=== PATIENT | male | born 1955 | race Caucasian/White ===

== ENCOUNTER 2017-03-20 11:46 | Inpatient (IN) | payer OTHER ==
[~2017-03-20] VITALS: Ht 182.9 cm; Wt 122.5 kg
[2017-03-20 11:53] VITALS: BP_SYST 212
[2017-03-20 12:40] LABS: BASOPHILS # (AUTO) 0.3 K/uL (0.0-0.2); BASOPHILS % (AUTO) 2.7 % (0.0-2.0); EOSINOPHILS # (AUTO) 0.1 K/uL (0.0-0.4); EOSINOPHILS % (AUTO) 0.9 % (0.0-4.0); HEMATOCRIT 49.2 % (36-54); HEMOGLOBIN 16.3 g/dL (14.0-18.0); LYMPHOCYTES % (AUTO) 16.8 % (20.5-51.5); MEAN CORPUSCULAR HEMOGLOBIN 29 pg (27-31); MEAN CORPUSCULAR HGB CONC 33 % (32-36); MEAN CORPUSCULAR VOLUME 88 fL (79.0-98.0); MONOCYTES % (AUTO) 8.4 % (1.7-9.3); NEUTROPHILS # (AUTO) 8.7 K/uL (1.8-7.7); NEUTROPHILS % (AUTO) 71.2 % (40.0-70.0); PLATELET COUNT (AUTO) 247 K/uL (130-430); RED BLOOD CELL COUNT(AUTO) 5.61 MIL/uL (4.2-6.2); RED CELL DISTRIBUTION WIDTH 12.4 % (9.0-15.0); WHITE BLOOD COUNT (AUTO) 12.1 K/uL (4.8-10.8)
[2017-03-20 12:44] LABS: CALCIUM 9.2 mg/dL (8.4-11.0); CREATININE 1.26 mg/dL (0.55-1.30)
[2017-03-20 12:47] LABS: INR 1.1 (0.80-1.20); PROTHROMBIN TIME 11.6 SECS (9.5-12.5)
[2017-03-20 12:50] LABS: POTASSIUM 2.9 mmol/L (3.5-5.1)
[2017-03-20 12:55] LABS: ALBUMIN 3.5 g/dL (3.4-4.8); TOTAL BILIRUBIN 0.6 mg/dL (0.0-1.0)
[2017-03-20] MEDS ORDERED: PROMETHAZINE 6.25 MG/ CODEINE 10 MG/ 5 ML PO ONE ×2 (13:00→16:45)
[2017-03-20] MEDS ORDERED: AZITHROMYCIN 500 MG in NS 250 ML IV ONE (13:00)
[2017-03-20] MEDS ORDERED: POTASSIUM CHLORIDE 20 MEQ TAB.PRT.SR PO ONE (13:00)
[2017-03-20] MEDS ORDERED: methylPREDNISolone SOD SUCC/PF 62.5 MG/ML VIAL IVP ONE (13:00)
[2017-03-20] MEDS ORDERED: IPRATROPIUM/ALBUTEROL SULFATE 3 ML AMPUL.NEB INH ONE ×2 (13:00→16:45)
[2017-03-20] MEDS ORDERED: NACL 0.9% 1,000 ML IV ONE (13:00)
[2017-03-20] MEDS ORDERED: AZITHROMYCIN 500 MG/VIAL (ZITHROMAX) IV ONE (14:10)
[2017-03-20] MEDS ORDERED: IOHEXOL 350 mgI/mL, 150 ML INFUS..BTL IV ONE (14:59)
[2017-03-20] MEDS ORDERED: ONDANSETRON HCL 4 MG/2 ML VIAL IVP ONE (16:45)
[2017-03-20] MEDS ORDERED: MORPHINE 2 MG/ML INJ. SYRINGE IVP ONE (16:45)
[2017-03-20 18:24] VITALS: BP_SYST 204
[2017-03-20] MEDS: cloNIDine HCL 0.1 MG TABLET PO PRN (18:34)
[2017-03-20 19:30] VITALS: BP_SYST 161
[2017-03-21 00:19] VITALS: BP_SYST 159
[2017-03-21 04:00] VITALS: BP_SYST 154
[2017-03-21 06:43] LABS: BASOPHILS % (AUTO) 0.2 % (0.0-2.0); EOSINOPHILS % (AUTO) 0.1 % (0.0-4.0); HEMOGLOBIN 14.8 g/dL (14.0-18.0); LYMPHOCYTES # (AUTO) 1.5 K/uL (1.0-5.5); LYMPHOCYTES % (AUTO) 13.3 % (20.5-51.5); MEAN CORPUSCULAR HEMOGLOBIN 29 pg (27-31); MEAN CORPUSCULAR HGB CONC 33 % (32-36); MEAN CORPUSCULAR VOLUME 89 fL (79.0-98.0); MONOCYTES # (AUTO) 0.6 K/uL (0.0-1.0); MONOCYTES % (AUTO) 5.1 % (1.7-9.3); NEUTROPHILS # (AUTO) 9.4 K/uL (1.8-7.7); NEUTROPHILS % (AUTO) 81.3 % (40.0-70.0); PLATELET COUNT (AUTO) 269 K/uL (130-430); RED BLOOD CELL COUNT(AUTO) 5.07 MIL/uL (4.2-6.2); RED CELL DISTRIBUTION WIDTH 12.6 % (9.0-15.0); WHITE BLOOD COUNT (AUTO) 11.5 K/uL (4.8-10.8)
[2017-03-21 06:50] LABS: CREATININE 1.15 mg/dL (0.55-1.30); POTASSIUM 3.8 mmol/L (3.5-5.1); TOTAL BILIRUBIN 0.3 mg/dL (0.0-1.0); TOTAL PROTEIN, SERUM 7.3 g/dL (6.4-8.3)
[2017-03-21 08:11] VITALS: BP_SYST 167
[2017-03-21] MEDS: ALBUTEROL SULFATE 0.083% 2.5 MG/3 ML VIAL.NEB INH PRN ×2 (08:12→11:35)
[2017-03-21] MEDS ORDERED: ENOXAPARIN SODIUM 40 MG/0.4 ML SYRINGE SUBCUT SCH (09:00)
[2017-03-21] MEDS ORDERED: ASPIRIN 81 MG TAB.CHEW PO SCH (09:00)
[2017-03-21] MEDS ORDERED: AZITHROMYCIN 500 MG in NS 250 ML IV SCH (09:30)
[2017-03-21] MEDS ORDERED: cefTRIAXone 1 GM IVPB PREMIX 50 ML IV SCH (09:30)
[2017-03-21] MEDS: cloNIDine HCL 0.1 MG TABLET PO PRN (10:41)
[2017-03-21 11:31] VITALS: BP_SYST 169
[2017-03-21] MEDS ORDERED: guaiFENesin 200 MG/10 ML UDC PO SCH (13:00)
[2017-03-21] MEDS ORDERED: LEVO500T20 PO (14:30)
[2017-03-21] MEDS ORDERED: METO25TA6 PO (14:31)
[2017-03-21] MEDS ORDERED: ALBU8.5H8 INH (14:33)
[2017-03-21] MEDS ORDERED: GUAI5SYR PO (14:34)
[2017-03-21 14:45] VITALS: BP_SYST 150
[2017-03-21 14:49] VITALS: BP_SYST 150
[2017-03-21] MEDS ORDERED: METOPROLOL TARTRATE 25 MG TABLET PO SCH (21:00)
== END 2017-03-21 15:40 | disposition home or self-care (01) | DRG 872 ==
LOC: SED 11:46 → STU 17:04
DX: A41.9 Sepsis, unspecified organism (principal); I10 Essential (primary) hypertension; J20.9 Acute bronchitis, unspecified; R79.89 Other specified abnormal findings of blood chemistry; Z87.891 Personal history of nicotine dependence
CPT/HCPCS: 36415; 71010; 71275; 80053; 83605; 83880; 84484; 85025; 85379; 85610-TC; 85730-TC; 87040-TC; 93005; 93306; 94640; 96365; 96366; 96367; 96375; 99291; J0456; J0696; J1650; J2270; J2405; J2930; J7030; J7040; J7050; Q9967

== ENCOUNTER 2017-03-22 04:44 | Inpatient (IN) | payer OTHER ==
[2017-03-22] VITALS (9 sets, daily range): BP systolic 136–190
[~2017-03-22] VITALS: Ht 182.9 cm; Wt 130.6 kg
[~2017-03-22 04:44] MED LIST: ALBU8.5H8 INH; GUAI5SYR PO; LEVO500T20 PO; METO25TA6 PO
[2017-03-22] MEDS ORDERED: methylPREDNISolone SOD SUCC/PF 62.5 MG/ML VIAL IVP ONE ×3 (04:54→10:30)
[2017-03-22] MEDS ORDERED: IPRATROPIUM/ALBUTEROL SULFATE 3 ML AMPUL.NEB INH ONE (04:54)
[2017-03-22] MEDS ORDERED: methylPREDNISolone SOD SUCC/PF 62.5 MG/ML VIAL ONE (05:03)
[2017-03-22 05:25] LABS: BLOOD GAS PH 7.401 (7.350-7.450)
[2017-03-22 05:26] LABS: ABG TOTAL HEMOGLOBIN 16.1 G/dL (12.0-18.0); BLOOD GAS COHb% 0.2 % (0.5-1.5); BLOOD GAS HHB 2.4 % (0.0-6.0); BLOOD O2Hb% 97.1 % (94.0-97.0)
[2017-03-22 05:27] LABS: BLOOD GAS BASE EXCESS -0.9 mmol/L (-3.0-3.0)
[2017-03-22] MEDS ORDERED: VANCOMYCIN HCL 1,000 MG in NS 250 ML IV ONE (05:30)
[2017-03-22] MEDS ORDERED: MEROPENEM 1 GM in NS 100 ML IV ONE (05:30)
[2017-03-22 05:37] LABS: BASOPHILS # (AUTO) 0.3 K/uL (0.0-0.2); BASOPHILS % (AUTO) 1.5 % (0.0-2.0); EOSINOPHILS # (AUTO) 0.1 K/uL (0.0-0.4); EOSINOPHILS % (AUTO) 0.4 % (0.0-4.0); HEMOGLOBIN 16.1 g/dL (14.0-18.0); LYMPHOCYTES # (AUTO) 2.7 K/uL (1.0-5.5); LYMPHOCYTES % (AUTO) 13.8 % (20.5-51.5); MEAN CORPUSCULAR HEMOGLOBIN 29 pg (27-31); MEAN CORPUSCULAR HGB CONC 33 % (32-36); MEAN CORPUSCULAR VOLUME 89 fL (79.0-98.0); MONOCYTES % (AUTO) 5.1 % (1.7-9.3); NEUTROPHILS # (AUTO) 15.4 K/uL (1.8-7.7); NEUTROPHILS % (AUTO) 79.2 % (40.0-70.0); PLATELET COUNT (AUTO) 314 K/uL (130-430); RED BLOOD CELL COUNT(AUTO) 5.53 MIL/uL (4.2-6.2); RED CELL DISTRIBUTION WIDTH 12.7 % (9.0-15.0); WHITE BLOOD COUNT (AUTO) 19.5 K/uL (4.8-10.8)
[2017-03-22 05:40] LABS: CALCIUM 8.7 mg/dL (8.4-11.0); CREATININE 1.46 mg/dL (0.55-1.30); POTASSIUM 3.4 mmol/L (3.5-5.1)
[2017-03-22] MEDS ORDERED: MEROPENEM 500 MG VIAL IV ONE (05:43)
[2017-03-22 05:44] LABS: ALBUMIN 3.2 g/dL (3.4-4.8); TOTAL BILIRUBIN 0.4 mg/dL (0.0-1.0); TOTAL PROTEIN, SERUM 7.5 g/dL (6.4-8.3)
[2017-03-22] MEDS ORDERED: VANCOMYCIN HCL 1000 MG/VIAL IV ONE (05:44)
[2017-03-22] MEDS ORDERED: NACL 0.9% IV ONE ×2 (06:15→06:30)
[2017-03-22] MEDS ORDERED: ALBUTEROL SULFATE 0.083% 2.5 MG/3 ML VIAL.NEB INH PRN (07:30)
[2017-03-22] MEDS ORDERED: IPRATROPIUM BROM 0.5 MG/2.5 ML VIAL.NEB (ATROVENT) INH PRN (07:30)
[2017-03-22] MEDS ORDERED: ENOXAPARIN SODIUM 30 MG/0.3 ML SYRINGE SUBCUT SCH (09:00)
[2017-03-22] MEDS ORDERED: methylPREDNISolone SOD SUCC/PF 62.5 MG/ML VIAL IVP SCH (10:30)
[2017-03-22] MEDS: IPRATROPIUM BROM 0.5 MG/2.5 ML VIAL.NEB (ATROVENT) INH SCH ×4 (11:02→23:00)
[2017-03-22] MEDS: ALBUTEROL SULFATE 0.083% 2.5 MG/3 ML VIAL.NEB INH SCH ×4 (11:03→23:00)
[2017-03-22] MEDS: cefTRIAXone 1 GM IVPB PREMIX 50 ML IV SCH (12:34)
[2017-03-22] MEDS: AZITHROMYCIN 500 MG in NS 250 ML IV SCH (13:19)
[2017-03-22] MEDS: methylPREDNISolone SOD SUCC/PF 62.5 MG/ML VIAL IVP SCH ×2 (15:31→21:31)
[2017-03-22] MEDS: cloNIDine HCL 0.1 MG TABLET PO PRN (20:04)
[2017-03-22 22:10] LABS: BILIRUBIN,URINE NEGATIVE (NEGATIVE); CLARITY/URINE CLEAR (CLEAR); COLOR,URINE YELLOW (YELLOW); GLUCOSE,URINE 1+ (NEGATIVE); KETONES,URINE NEGATIVE (NEGATIVE); LEUKOCYTE ESTERASE ,URINE NEGATIVE (NEGATIVE); NITRITE, URINE NEGATIVE (NEGATIVE); PROTEIN URINE NEGATIVE (NEGATIVE); UROBILINOGEN,URINE 0.2 (0.2-1.0)
[2017-03-22 22:15] LABS: BLOOD, URINE TRACE (NEGATIVE)
[2017-03-22 23:46] LABS: BACTERIA,URINE FEW /HPF (None Seen); MUCUS,URINE 1+ /LPF (None Seen); RBC,URINE 0-3 /HPF (0-3); URIC ACID CRYSTALS,URINE 0-10 /HPF (None Seen); WBC,URINE 0-3 /HPF (0-3)
[2017-03-23] MEDS: IPRATROPIUM BROM 0.5 MG/2.5 ML VIAL.NEB (ATROVENT) INH SCH ×6 (00:06→19:57)
[2017-03-23] MEDS: ALBUTEROL SULFATE 0.083% 2.5 MG/3 ML VIAL.NEB INH SCH ×6 (00:06→19:57)
[2017-03-23 00:11] VITALS: BP_SYST 129
[2017-03-23 04:20] VITALS: BP_SYST 144
[2017-03-23] MEDS: methylPREDNISolone SOD SUCC/PF 62.5 MG/ML VIAL IVP SCH ×3 (05:27→21:59)
[2017-03-23 06:46] LABS: BASOPHILS # (AUTO) 0.2 K/uL (0.0-0.2); BASOPHILS % (AUTO) 0.8 % (0.0-2.0); EOSINOPHILS # (AUTO) 0.2 K/uL (0.0-0.4); HEMATOCRIT 41.7 % (36-54); HEMOGLOBIN 14.1 g/dL (14.0-18.0); LYMPHOCYTES # (AUTO) 1.4 K/uL (1.0-5.5); MEAN CORPUSCULAR HEMOGLOBIN 30 pg (27-31); MEAN CORPUSCULAR HGB CONC 34 % (32-36); MEAN CORPUSCULAR VOLUME 90 fL (79.0-98.0); MONOCYTES # (AUTO) 0.4 K/uL (0.0-1.0); MONOCYTES % (AUTO) 2.1 % (1.7-9.3); NEUTROPHILS # (AUTO) 17.4 K/uL (1.8-7.7); NEUTROPHILS % (AUTO) 89.1 % (40.0-70.0); PLATELET COUNT (AUTO) 321 K/uL (130-430); RED BLOOD CELL COUNT(AUTO) 4.65 MIL/uL (4.2-6.2); RED CELL DISTRIBUTION WIDTH 12.8 % (9.0-15.0); WHITE BLOOD COUNT (AUTO) 19.6 K/uL (4.8-10.8)
[2017-03-23 06:50] LABS: ALBUMIN 2.9 g/dL (3.4-4.8); BILIRUBIN,DIRECT 0.2 mg/dL (0.0-0.3); CALCIUM 8.4 mg/dL (8.4-11.0); CREATININE 1.04 mg/dL (0.55-1.30); POTASSIUM 3.7 mmol/L (3.5-5.1); TOTAL BILIRUBIN 0.3 mg/dL (0.0-1.0); TOTAL PROTEIN, SERUM 7.1 g/dL (6.4-8.3)
[2017-03-23 08:12] VITALS: BP_SYST 171
[2017-03-23] MEDS: cefTRIAXone 1 GM IVPB PREMIX 50 ML IV SCH (08:59)
[2017-03-23] MEDS: cloNIDine HCL 0.1 MG TABLET PO PRN ×2 (09:00→17:43)
[2017-03-23] MEDS: AZITHROMYCIN 500 MG in NS 250 ML IV SCH (11:08)
[2017-03-23] MEDS: PROMETHAZINE 6.25 MG/ CODEINE 10 MG/ 5 ML PO PRN ×2 (12:53→18:46)
[2017-03-23 16:23] VITALS: BP_SYST 185
[2017-03-23] MEDS: PIPERACILLIN/TAZO 4.5GM/DEX-IS 100 ML IV SCH ×2 (17:23→21:19)
[2017-03-23] MEDS ORDERED: PROMETHAZINE-DM 6.25 MG-15 MG/5 ML UDC PO PRN (18:30)
[2017-03-23 19:30] VITALS: BP_SYST 160
[2017-03-23] MEDS: BUDESONIDE 0.5 MG/2 ML AMPUL.NEB INH SCH (19:57)
[2017-03-23] MEDS: LACTOBACILLUS RHAMNOSUS GG 1 CAP CAPSULE PO SCH (20:45)
[2017-03-24 00:19] VITALS: BP_SYST 155
[2017-03-24] MEDS: PROMETHAZINE 6.25 MG/ CODEINE 10 MG/ 5 ML PO PRN (00:34)
[2017-03-24 04:09] VITALS: BP_SYST 151
[2017-03-24] MEDS: PIPERACILLIN/TAZO 4.5GM/DEX-IS 100 ML IV SCH ×3 (05:04→21:40)
[2017-03-24] MEDS: methylPREDNISolone SOD SUCC/PF 62.5 MG/ML VIAL IVP SCH ×3 (05:05→21:41)
[2017-03-24 06:32] LABS: HEMATOCRIT 41.6 % (36-54); HEMOGLOBIN 13.8 g/dL (14.0-18.0); MEAN CORPUSCULAR HEMOGLOBIN 29 pg (27-31); MEAN CORPUSCULAR HGB CONC 33 % (32-36); MEAN CORPUSCULAR VOLUME 89 fL (79.0-98.0); PLATELET COUNT (AUTO) 290 K/uL (130-430); WHITE BLOOD COUNT (AUTO) 18.1 K/uL (4.8-10.8)
[2017-03-24 06:33] LABS: BASOPHILS % (AUTO) 0.1 % (0.0-2.0); LYMPHOCYTES # (AUTO) 1.1 K/uL (1.0-5.5); MONOCYTES # (AUTO) 0.4 K/uL (0.0-1.0); MONOCYTES % (AUTO) 2.3 % (1.7-9.3); NEUTROPHILS # (AUTO) 16.6 K/uL (1.8-7.7)
[2017-03-24] MEDS: BUDESONIDE 0.5 MG/2 ML AMPUL.NEB INH SCH ×2 (07:11→20:35)
[2017-03-24] MEDS: ALBUTEROL SULFATE 0.083% 2.5 MG/3 ML VIAL.NEB INH SCH ×5 (07:11→23:14)
[2017-03-24] MEDS: IPRATROPIUM BROM 0.5 MG/2.5 ML VIAL.NEB (ATROVENT) INH SCH ×5 (07:11→23:14)
[2017-03-24 08:17] LABS: NEUTROPHILS % (AUTO) 91.6 % (40.0-70.0)
[2017-03-24 08:19] VITALS: BP_SYST 182
[2017-03-24] MEDS: AZITHROMYCIN 500 MG in NS 250 ML IV SCH (08:29)
[2017-03-24] MEDS: LACTOBACILLUS RHAMNOSUS GG 1 CAP CAPSULE PO SCH ×2 (08:30→21:41)
[2017-03-24] MEDS: cloNIDine HCL 0.1 MG TABLET PO PRN ×2 (08:30→21:44)
[2017-03-24] MEDS: ENOXAPARIN SODIUM 30 MG/0.3 ML SYRINGE SUBCUT SCH (08:30)
[2017-03-24] MEDS ORDERED: VANCOMYCIN HCL 1 GM/NS PREMIX 250 ML IV SCH ×2 (11:15)
[2017-03-24 12:43] VITALS: BP_SYST 168
[2017-03-24] MEDS ORDERED: LISINOPRIL 20 MG TABLET PO ONE (14:00)
[2017-03-24] MEDS: VANCOMYCIN HCL 1,500 MG in NS 250 ML IV SCH (16:07)
[2017-03-24 16:45] VITALS: BP_SYST 167
[2017-03-24 20:00] VITALS: BP_SYST 168
[2017-03-25] VITALS (7 sets, daily range): BP systolic 158–195
[2017-03-25] MEDS: VANCOMYCIN HCL 1,500 MG in NS 250 ML IV SCH (02:44)
[2017-03-25] MEDS: ALBUTEROL SULFATE 0.083% 2.5 MG/3 ML VIAL.NEB INH SCH ×5 (03:00→20:19)
[2017-03-25] MEDS: IPRATROPIUM BROM 0.5 MG/2.5 ML VIAL.NEB (ATROVENT) INH SCH ×5 (03:00→20:19)
[2017-03-25] MEDS: cloNIDine HCL 0.1 MG TABLET PO PRN ×3 (03:49→17:09)
[2017-03-25] MEDS: PIPERACILLIN/TAZO 4.5GM/DEX-IS 100 ML IV SCH ×3 (06:30→21:04)
[2017-03-25] MEDS: methylPREDNISolone SOD SUCC/PF 62.5 MG/ML VIAL IVP SCH (06:30)
[2017-03-25] MEDS: BUDESONIDE 0.5 MG/2 ML AMPUL.NEB INH SCH ×2 (07:21→20:21)
[2017-03-25] MEDS: LACTOBACILLUS RHAMNOSUS GG 1 CAP CAPSULE PO SCH ×2 (08:35→21:05)
[2017-03-25] MEDS: ENOXAPARIN SODIUM 30 MG/0.3 ML SYRINGE SUBCUT SCH (08:36)
[2017-03-25] MEDS: LISINOPRIL 20 MG TABLET PO SCH (08:37)
[2017-03-25] MEDS: amLODIPine BESYLATE 10 MG TABLET PO SCH (08:50)
[2017-03-25] MEDS: AZITHROMYCIN 250 MG in NS 250 ML IV SCH (10:08)
[2017-03-25] MEDS: PREDNISONE 20 MG TABLET PO SCH (21:05)
[2017-03-26] VITALS: BP_SYST 144
[2017-03-26 04:21] VITALS: BP_SYST 145
[2017-03-26] MEDS: PIPERACILLIN/TAZO 4.5GM/DEX-IS 100 ML IV SCH ×2 (05:05→14:58)
[2017-03-26 06:39] LABS: HEMATOCRIT 44.9 % (36-54); HEMOGLOBIN 14.8 g/dL (14.0-18.0); MEAN CORPUSCULAR HEMOGLOBIN 29 pg (27-31); MEAN CORPUSCULAR HGB CONC 33 % (32-36); MEAN CORPUSCULAR VOLUME 89 fL (79.0-98.0); PLATELET COUNT (AUTO) 271 K/uL (130-430); RED BLOOD CELL COUNT(AUTO) 5.04 MIL/uL (4.2-6.2); RED CELL DISTRIBUTION WIDTH 12.7 % (9.0-15.0)
[2017-03-26] MEDS: ALBUTEROL SULFATE 0.083% 2.5 MG/3 ML VIAL.NEB INH SCH ×3 (07:31→15:47)
[2017-03-26] MEDS: IPRATROPIUM BROM 0.5 MG/2.5 ML VIAL.NEB (ATROVENT) INH SCH ×3 (07:31→15:48)
[2017-03-26] MEDS: BUDESONIDE 0.5 MG/2 ML AMPUL.NEB INH SCH (07:31)
[2017-03-26 07:51] LABS: BASOPHILS % (MANUAL) 0 % (0-2); EOSINOPHILS % (MANUAL) 0 % (0-7); LYMPHOCYTES % (MANUAL) 18 % (20-46); MONOCYTES % (MANUAL) 7 % (0-11)
[2017-03-26 08:00] VITALS: BP_SYST 196
[2017-03-26] MEDS: ENOXAPARIN SODIUM 30 MG/0.3 ML SYRINGE SUBCUT SCH (09:00)
[2017-03-26] MEDS: PREDNISONE 20 MG TABLET PO SCH (09:19)
[2017-03-26] MEDS: cloNIDine HCL 0.1 MG TABLET PO PRN (09:19)
[2017-03-26] MEDS: amLODIPine BESYLATE 10 MG TABLET PO SCH (09:20)
[2017-03-26] MEDS: LACTOBACILLUS RHAMNOSUS GG 1 CAP CAPSULE PO SCH (09:20)
[2017-03-26] MEDS: LISINOPRIL 20 MG TABLET PO SCH (09:20)
[2017-03-26] MEDS: AZITHROMYCIN 250 MG in NS 250 ML IV SCH (09:24)
[2017-03-26] MEDS ORDERED: COMMUNICATION ORDER XX ONE (09:30)
[2017-03-26] MEDS ORDERED: ENOXAPARIN SODIUM 40 MG/0.4 ML SYRINGE SUBCUT ONE (09:45)
[2017-03-26 11:30] VITALS: BP_SYST 162
[2017-03-26 14:17] VITALS: BP_SYST 148
[2017-03-26 15:53] VITALS: BP_SYST 174
[2017-03-27] MEDS ORDERED: ENOXAPARIN SODIUM 40 MG/0.4 ML SYRINGE SUBCUT SCH (09:00)
== END 2017-03-26 16:20 | disposition home or self-care (01) | DRG 871 ==
LOC: SED 04:44 → STU 06:40 → SMU 03-23 12:35
PROVIDERS: ADMIT Internal Medicine Hospice and Palliative Medicine; ATTEND Internal Medicine Hospice and Palliative Medicine
PROC: 5A09357 Assistance with Respiratory Ventilation, Less than 24 Consecutive Hours, Continuous Positive Airway Pressure (ICD-10-PCS; principal; 2017-03-22)
DX: A41.9 Sepsis, unspecified organism (principal); J18.9 Pneumonia, unspecified organism; J96.01 Acute respiratory failure with hypoxia; J44.0 Chronic obstructive pulmonary disease with (acute) lower respiratory infection; G47.30 Sleep apnea, unspecified; I51.7 Cardiomegaly; I10 Essential (primary) hypertension; E66.9 Obesity, unspecified; Z87.891 Personal history of nicotine dependence; Z82.49 Family history of ischemic heart disease and other diseases of the circulatory system; Z68.39 Body mass index [BMI] 39.0-39.9, adult; Z88.1 Allergy status to other antibiotic agents
CPT/HCPCS: 36415; 36600; 71010; 71250-TC; 80048; 80053; 80076; 81000-TC; 82803-TC; 83605; 85007; 85025; 85027; 86738; 87040-TC; 87081; 87086; 87205-TC; 94640; 94660; 94760; 96365; 96366; 96367; 96375; 99291; J0456; J0696; J1650; J2185; J2543; J2930; J3370; J7030; J7040; J7050; J7512

== ENCOUNTER 2018-10-24 05:30 | Emergency (ER) | payer OTHER ==
[~2018-10-24] VITALS: Ht 182.9 cm; Wt 133.4 kg
[~2018-10-24 05:30] MED LIST changes: -LEVO500T20 PO; -METO25TA6 PO
[2018-10-24 05:41] VITALS: BP_SYST 148
[2018-10-24] MEDS ORDERED: SILVER NITRATE APPLICATOR 1 STICK STICK..EA. TP ONE ×2 (06:03→06:45)
[2018-10-24 06:44] VITALS: BP_SYST 142
== END 2018-10-24 06:44 | disposition home or self-care (01) ==
LOC: SED 06:00
DX: R04.0 Epistaxis (principal); I10 Essential (primary) hypertension; J44.9 Chronic obstructive pulmonary disease, unspecified; Z87.891 Personal history of nicotine dependence
CPT/HCPCS: 99283